=== PATIENT | male | born 1955 | race Caucasian/White ===

== ENCOUNTER 2024-09-12 11:15 | Outpatient (CLI) | payer MEDICARE, SELFPAY ==
--- NOTE | 2024-09-12 11:31 | XR_ITS ---
WS: [id number] Lumbar spine, 3 views, 09/12/2024 Clinical Data: SCIATICA, LEFT SIDE/PAIN IN L HIP Comparison: None. Findings: No compression fractures or subluxation is seen. There is disc narrowing at all levels from T12-L1 through L5-S1. There are anterior spurs at all lumbar levels. The transverse processes and SI joints are normal. There is facet joint arthritis at all levels. XR/XR lumbar spine 2-3V* [id number] Impression: Multilevel disc narrowing, osteoarthritis and facet joint arthritis.
--- NOTE | 2024-09-12 11:31 | XR_ITS ---
WS: [id number] Left hip, AP and frog-leg views, 09/12/2024 Clinical Data: LEFT SIDE SCIATICA/L HIP PAIN Comparison: None. Findings: No fractures or dislocations are seen. The left hip shows narrowing, sclerosis, cyst formation and deformity of the left femoral head. The soft tissues are not remarkable. The adjacent pelvis is normal. Vascular calcification is present. XR/XR hip LT 2-3V wo/w pel* [id number] Impression: Moderate osteoarthritis of the left hip.
== END 2024-09-12 11:16 | disposition home or self-care (01) ==
PROVIDERS: PCP Nurse Practitioner Family; Visit Provider Nurse Practitioner Family
DX: M54.32 Sciatica, left side (principal); M16.12 Unilateral primary osteoarthritis, left hip; M51.35 Other intervertebral disc degeneration, thoracolumbar region; M51.369 Other intervertebral disc degeneration, lumbar region without mention of lumbar back pain or lower extremity pain; M51.379 Other intervertebral disc degeneration, lumbosacral region without mention of lumbar back pain or lower extremity pain; M25.78 Osteophyte, vertebrae; M47.896 Other spondylosis, lumbar region; R93.7 Abnormal findings on diagnostic imaging of other parts of musculoskeletal system; I70.90 Unspecified atherosclerosis
CPT/HCPCS: 72100; 73502

== ENCOUNTER → 2024-09-24 07:50 | Outpatient (BNVA) | payer MEDICARE, SELFPAY | PROVIDERS: PCP Nurse Practitioner Family; Visit Provider Orthopaedic Surgery | DX: M16.12 Unilateral primary osteoarthritis, left hip (principal) | CPT/HCPCS: 99204 ==

== ENCOUNTER → 2024-10-02 14:03 | Outpatient (BNVA) | payer MEDICARE, SELFPAY | PROVIDERS: PCP Nurse Practitioner Family; Visit Provider Orthopaedic Surgery | DX: M54.50 Low back pain, unspecified (principal) | CPT/HCPCS: 72110; 99204 ==

== ENCOUNTER 2024-10-30 06:42 | Outpatient (CLI) | payer MEDICARE, SELFPAY ==
--- NOTE | 2024-10-30 07:15 | MR_ITS ---
WS: [id number] MRI LUMBAR SPINE NONCONTRAST HISTORY: back pain, RIGHT leg radiculopathy. COMPARISON: Radiograph 10/02/2024 TECHNIQUE: Sagittal and axial multisequence imaging is submitted. L2 retrolisthesis by 3.3 mm. L3 retrolisthesis by 5.3 mm. Mild increase in the lumbar lordosis. No marrow edema or fracture. Mild diffuse disc desiccation. Conus terminates normally at L1-2 disc level. L1-L2: Mild facet arthritis. No stenosis. L2-L3: Mild annular disc bulging with osteophytic ridging and facet arthritis. LEFT foraminal disc protrusion and facet disease resulting in mild to moderate LEFT foraminal stenosis. Very mild RIGHT foraminal stenosis. L3-L4: Diffuse annular disc bulging with osteophytic ridging. Marked ligamentum flavum and facet arthritis. There is disc encroachment upon the traversing L4 nerve roots. There is also encroachment upon the traversing L3 nerve roots. Moderate to severe central, bilateral subarticular recess and foraminal stenosis. L4-L5: Diffuse annular disc bulging. Moderate central disc protrusion with annular fissure contacting and deforming the ventral thecal sac. Severe ligamentum flavum and facet arthritis. Disc osteophyte and facet disease contributing to foraminal stenosis. Severe central, bilateral subarticular recess and moderate foraminal stenosis. Most significant disc contact on the traversing RIGHT L5 nerve root. L5-S1: Mild annular disc bulging with facet and ligamentum flavum hypertrophy. There is contact on the RIGHT S1 nerve root. RIGHT S1 nerve root appears slightly larger than the LEFT suggesting an may be inflamed. Mild central, subarticular recess and foraminal stenosis. Fluid in the facet joints and severe facet joint arthritis. MR/MR lumbar spine wo con* [id number] IMPRESSION: 1. L2 and L3 retrolisthesis, 3.3 and 5.3 mm respectively. 2. L3-4: Moderate to severe central, bilateral subarticular recess and foramin al stenosis. Significant disc encroachment upon the traversing L4 nerve roots. Lesser contact on the L3 nerve roots. 3. L4-5: Severe central, bilateral subarticular recess and moderate foraminal stenosis. Most significant contact on the traversing RIGHT L5 nerve root by a c entral to RIGHT paracentral disc protrusion. 4. L5-S1: Mild disc contact on the RIGHT S1 nerve root. RIGHT S1 nerve root ap pears slightly larger than the LEFT with mild increased T2 signal suggesting it may be inflamed. 5. L5-S1: Mild central, subarticular recess and foraminal stenosis. Severe fac et joint arthritis with fluid in the facet joints at this level. 6. L2-3: LEFT foraminal disc protrusion resulting in mild to moderate LEFT for aminal stenosis.
== END 2024-10-30 06:43 | disposition home or self-care (01) ==
PROVIDERS: PCP Nurse Practitioner Family; Visit Provider Orthopaedic Surgery
DX: M47.26 Other spondylosis with radiculopathy, lumbar region (principal); M43.16 Spondylolisthesis, lumbar region; M48.061 Spinal stenosis, lumbar region without neurogenic claudication; M51.16 Intervertebral disc disorders with radiculopathy, lumbar region
CPT/HCPCS: 72148

== ENCOUNTER → 2024-11-06 07:39 | Outpatient (BNVA) | payer MEDICARE, SELFPAY | PROVIDERS: PCP Nurse Practitioner Family; Visit Provider Orthopaedic Surgery | DX: M48.062 Spinal stenosis, lumbar region with neurogenic claudication (principal) | CPT/HCPCS: 99213 ==

== ENCOUNTER → 2024-11-12 08:43 | Outpatient (BNVA) | payer MEDICARE, SELFPAY | PROVIDERS: PCP Nurse Practitioner Family; Referring Provider Orthopaedic Surgery; Visit Provider Anesthesiology Pain Medicine | DX: M48.062 Spinal stenosis, lumbar region with neurogenic claudication (principal); M51.16 Intervertebral disc disorders with radiculopathy, lumbar region | CPT/HCPCS: 99204 ==

== ENCOUNTER → 2024-12-04 09:06 | Outpatient (BNVA) | payer MEDICARE, SELFPAY | PROVIDERS: PCP Nurse Practitioner Family; Visit Provider Anesthesiology Pain Medicine | DX: M54.9 Dorsalgia, unspecified (principal); M48.062 Spinal stenosis, lumbar region with neurogenic claudication; M51.16 Intervertebral disc disorders with radiculopathy, lumbar region | CPT/HCPCS: 99214 ==

== ENCOUNTER → 2024-12-12 13:25 | Outpatient (BNVA) | payer MEDICARE, SELFPAY | PROVIDERS: PCP Nurse Practitioner Family; Visit Provider Anesthesiology Pain Medicine | DX: M54.16 Radiculopathy, lumbar region (principal); M48.062 Spinal stenosis, lumbar region with neurogenic claudication; M54.9 Dorsalgia, unspecified | CPT/HCPCS: 62323; J1010; J9999 ==

== ENCOUNTER → 2025-01-07 10:51 | Outpatient (BNVA) | payer MEDICARE, SELFPAY | PROVIDERS: PCP Nurse Practitioner Family; Visit Provider Anesthesiology Pain Medicine | DX: M48.062 Spinal stenosis, lumbar region with neurogenic claudication (principal); M51.16 Intervertebral disc disorders with radiculopathy, lumbar region | CPT/HCPCS: 99214 ==

== ENCOUNTER → 2025-01-29 09:53 | Outpatient (BNVA) | payer MEDICARE, SELFPAY | PROVIDERS: PCP Nurse Practitioner Family; Visit Provider Orthopaedic Surgery | DX: M48.062 Spinal stenosis, lumbar region with neurogenic claudication (principal); M51.16 Intervertebral disc disorders with radiculopathy, lumbar region; Z01.818 Encounter for other preprocedural examination | CPT/HCPCS: 36415; 80053; 81001; 85025; 99214 ==

== ENCOUNTER → 2025-02-05 09:33 | Outpatient (BNVA) | payer MEDICARE, SELFPAY | PROVIDERS: PCP Nurse Practitioner Family; Visit Provider Anesthesiology Pain Medicine | DX: M48.062 Spinal stenosis, lumbar region with neurogenic claudication (principal); M51.16 Intervertebral disc disorders with radiculopathy, lumbar region | CPT/HCPCS: 99214 ==

== ENCOUNTER 2025-02-18 11:15 | Day surgery (SDC) | payer MEDICARE, SELFPAY ==
[2025-02-18] VITALS (11 sets, daily range): BP systolic 157–193; BP diastolic 77–95; PULSE 66–90; RESP 16–21; TEMP 36.3–36.7; O2SAT 93–99; BMI 38.0
[2025-02-18] MEDS: labetalol 5 mg/mL SDV 20mL 10 MG IVP (12:07)
--- NOTE | 2025-02-18 12:07 | ANES.PREANE2 ---
Pre-Anesthetic Assessment Height/Weight: Height 6 ft Weight 280 lb Temp Pulse Resp BP Pulse Ox O2 Del Method 98.1 F 81 18 193/88 98 Room Air 02/18/25 11:34 02/18/25 11:34 02/18/25 11:34 02/18/25 11:34 02/18/25 11:34 02/18/25 11:34 Preop Diagnosis: Lumbar stenosis neurogenic claudication Operation Date: 02/18/25 13:15 Proposed Procedures p Lumbar Spine Decompression(Not Applicable) - Flakito Ascencio, DO Was Beta Aditi taken within 24 hours: N/A Was Clonidine taken within 24 hours: N/A Last intake: Intake Last Liquid Date 02/17/25 Last Liquid Time 20:00 Last Solid Date 02/17/25 Last Solid Time 17:30 Social No alcohol and No tobacco Exam alert, oriented x 3, clear to auscultation bilaterally and regular rate & rhythm Airway Submandibular: within normal limits Cervical ROM: within normal limits Mallampati: Class III Dentition: full Anesthetic Plan ASA status: 3 Anesthesia: General Other: No prior issues with anesthesia NPO since yesterday evening History of hypertension on lisinopril, hydrochlorothiazide and verapamil. Preop BP initially 193/88 but patient has not taken any of his home meds. He also states that he is in a decent amount of pain. 10 oh labetalol given History of GERD on omeprazole Labs reviewed from 01/29/2025 and acceptable for procedure. NA 135 at that time Plan for GETA Medications/Allergies Home Medications ?Medication ?Instructions ?Recorded ?Confirmed ?Last Taken ?Type citalopram 20 mg tablet 20 mg PO QDAY 09/24/24 02/15/25 02/14/25 History hydrochlorothiazide 25 mg tablet 25 mg PO QAM 09/24/24 02/15/25 02/15/25 History ibuprofen 600 mg tablet 600 mg PO BID PRN Back Pain 09/24/24 02/15/25 02/15/25 History lisinopril 10 mg tablet 10 mg PO QDAY 09/24/24 02/15/25 02/15/25 History omeprazole 20 mg capsule,delayed 20 mg PO QDAY 09/24/24 02/15/25 02/15/25 History release simvastatin 40 mg tablet 40 mg PO QDAY 09/24/24 02/15/2525 History trazodone 100 mg tablet 100 mg PO ONCE 09/24/24 02/15/25 02/15/25 History verapamil 360 mg 24 hr 360 mg PO QAM 09/24/24 02/15/25 02/15/25 History capsule,extended release topiramate 50 mg tablet (Topamax) 50 mg PO BID #60 tabs 02/05/25 02/15/25 02/15/25 Rx Allergies Allergy/AdvReac Type Severity Reaction Status Date / Time gabapentin Allergy Unknown rash Verified 02/05/25 09:46 PFSH Anesthesia Family History Father Heart disease Social History Smoking and tobacco/nicotine status: never used tobacco/nicotine
--- NOTE | 2025-02-18 13:27 | W.PM.OPSUD ---
Surgery/Procedure H&P Update DATE OF PROCEDURE: February 18, 2025 DATE H&P PERFORMED: 01/29/25 H&P UPDATE INFORMATION: I have reviewed H&P completed within last 30 days, I have examined patient prior to procedure and No changes to prior documentation PREOP DIAGNOSIS: Lumbar stenosis neurogenic claudication PLANNED PROCEDURE: Operation Date: 02/18/25 13:15 Proposed Procedures p Lumbar Spine Decompression(Not Applicable) - Flakito Ascencio DO
[2025-02-18] MEDS: ceFAZolin 3,000 MG in sodium chloride 0.9% (plus) 100 ML 200 MG IV (13:43)
[2025-02-18] MEDS: lidocaine-epi 1% 20 mL INJ 10 ML INJECTION (14:16)
--- NOTE | 2025-02-18 15:11 | P.OP_ITS ---
Operative Report Date of procedure: February 18, 2025 Pre-op diagnosis: Lumbar stenosis with neurogenic claudication Post-op diagnosis: same Procedure done: 1 L3/4 laminectomy and partial facetectomy. 2. L4/5 laminectomy and partial facetectomy Surgeon: Flakito Ascencio DO Estimated blood loss (mL): 20 Procedure: 1 L3/4 laminectomy and partial facetectomy. 2. L4/5 laminectomy and partial facetectomy Patient is brought to the operative suite. After undergoing anesthesia they are placed in the prone position. All areas of impingement are well padded. Patient is then prepped and draped in the normal sterile fashion. A skin incision is made over the L3/4 level. This is confirmed under c-arm guidance. A series of dilators are passed and the tubular retractor is docked on the L3 lamina. A bovie is used to clear the soft tissue off the lamina and the L 3/4 facet joint. A high speed rica is then used to perform the laminectomy and take down the medial aspect of the L 3/4 facet joint. A kerrison rongeure was then used to take down the remaining lamina and smooth the edge of the laminectomy up to the point where the ligamentum flavum attaches. Attention was then brought to the medial aspect of the facet joint. The remaining medial aspect of the superior and inferior aspect of the facet joint were taken down with the kerrison from the pedicle of L3 to L 4. The facet joint had significant hypertrophy. Attention was then brought to the Ligamentum Flavum. The ligament was taken down from the lamina of L3 to L4 and out medially to the remaining facet joint. The ligament was thick. The dura was then exposed. The dura was in good repair. The L3 nerve was then traced with a curette out the L3/4 foramen and found to be adequately decompressed. The L4 nerve was traced with a curette around the L4 pedicle. The lateral recess was opened with a kerrison helping to further decompress the L4 nerve. Wound is then irrigated copiously with saline and surgiflo is used to stop any bleeding. The tubular retractor is removed and the A skin incision is made over the L4/5 level. This is confirmed under c-arm guidance. A series of dilators are passed and the tubular retractor is docked on the L4 lamina. A bovie is used to clear the soft tissue off the lamina and the L 4/5 facet joint. A high speed rica is then used to perform the laminectomy and take down the medial aspect of the L 4/5 facet joint. A kerrison rongeure was then used to take down the remaining lamina and smooth the edge of the laminectomy up to the point where the ligamentum flavum attaches. Attention was then brought to the medial aspect of the facet joint. The remaining medial aspect of the superior and inferior aspect of the facet joint were taken down with the kerrison from the pedicle of L4 to L 5. The facet joint had significant hypertrophy. Attention was then brought to the Ligamentum Flavum. The ligament was taken down from the lamina of L4 to L5 and out medially to the remaining facet joint. The ligament was thick. The dura was then exposed. The dura was in good re pair. The L4 nerve was then traced with a curette out the L4/5 foramen and found to be adequately decompressed. The L5 nerve was traced with a curette around the L5 pedicle. The lateral recess was opened with a kerrison helping to further decompress the L5 nerve. Wound is then irrigated copiously with saline and surgiflo is used to stop any bleeding. The tubular retractor is removed and the wound is closed with vicryl and monocryl suture. Steri strips were applied. A sterile dressing is then placed. Patient was then placed in the supine position and transferred to the PACU in stable condition.
--- NOTE | 2025-02-18 16:08 | XR_ITS ---
WS: [id number] Lumbar spine, C-arm fluoroscopy views, 02/18/2025 Clinical Data: DECOMPRESSION, OR PIC Comparison: Lumbar spine, 10/02/2024 Findings: Dr. Ascencio performed lumbar decompression. XR/XR lumbar spine 1V [id number] Impression: Lumbar decompression.
== END 2025-02-18 16:32 | disposition home or self-care (01) ==
PROVIDERS: PCP Nurse Practitioner Family; Visit Provider Orthopaedic Surgery
PROC: (CPT 63005; principal; 2025-02-18 13:05)
DX: M48.062 Spinal stenosis, lumbar region with neurogenic claudication (principal); K21.9 Gastro-esophageal reflux disease without esophagitis; I10 Essential (primary) hypertension
CPT/HCPCS: 63047; 63048; 72020; 76000; J0690; J1100; J2250; J2371; J2405; J2704; J3010; J3490; J7030; J9999

== ENCOUNTER → 2025-03-14 08:38 | Outpatient (BNVA) | payer MEDICARE, SELFPAY | PROVIDERS: PCP Nurse Practitioner Family; Visit Provider Orthopaedic Surgery | DX: Z98.890 Other specified postprocedural states (principal) | CPT/HCPCS: 99024 ==

== ENCOUNTER → 2025-04-09 08:33 | Outpatient (BNVA) | payer MEDICARE, SELFPAY | PROVIDERS: PCP Nurse Practitioner Family; Visit Provider Orthopaedic Surgery | DX: Z98.890 Other specified postprocedural states (principal) | CPT/HCPCS: 99024 ==